=== PATIENT | female | born 1960 | race Caucasian/White ===

== ENCOUNTER 2021-07-22 06:31 | Inpatient (IN) | payer OTHER ==
[2021-07-22] MEDS ORDERED: ACETAMINOPHEN 500 MG TABLET (FP) PO ONE (07:51)
[2021-07-22] MEDS ORDERED: DIPHTH,PERTUSS(ACELL),TET 0.5 ML DISP.SYRIN IM ONE ×2 (07:52→07:57)
[2021-07-22] MEDS ORDERED: ACETAMINOPHEN 325 MG TABLET (FP) ONE (07:57)
[2021-07-22] MEDS ORDERED: LIDOCAINE 5% TOPICAL PATCH TP ONE (08:31)
[2021-07-22 08:46] LABS: HEMATOCRIT 37.4 % (32.4-45.2); HEMOGLOBIN 12.3 GM/dL (10.7-15.3); MCH 29.8 pg (25.7-33.7); MCHC 32.8 g/dl (32.0-36.0); MEAN CELL VOLUME 90.9 fl (80-96); MEAN PLT VOLUME 7.6 fl (7.5-11.1); PLATELET COUNT 317 10^3/uL (134-434); RBC 4.11 M/mm3 (3.60-5.2); RDW 14.2 % (11.6-15.6); WHITE BLOOD COUNT 21.5 K/mm3 (4.0-10.0)
[2021-07-22] MEDS ORDERED: LIDOCAINE 5% TOPICAL PATCH ONE (08:49)
[2021-07-22 09:04] LABS: CHLORIDE 100 mmol/L (98-107); SODIUM 139 mmol/L (136-145)
[2021-07-22 09:06] LABS: ANION GAP 20 MMOL/L (8-16); BLOOD UREA NITROGEN 24.3 mg/dL (7-18); CALCIUM 8.7 mg/dL (8.5-10.1); CO2 18 mmol/L (21-32)
[2021-07-22 09:09] LABS: SGOT/AST 22 U/L (15-37); SGPT/ALT 29 U/L (13-61)
[2021-07-22 09:10] LABS: CREATININE 0.8 mg/dL (0.55-1.3)
[2021-07-22 09:11] LABS: TOT PROT 6.4 g/dl (6.4-8.2)
[2021-07-22 09:12] LABS: ALK PHOS 179 U/L (45-117)
[2021-07-22] MEDS ORDERED: SODIUM CHLORIDE 0.9% 500 ML INFUS.BAG IV ONE ×2 (09:21→10:17)
[2021-07-22] MEDS ORDERED: POTASSIUM CHLORIDE TABS 20 MEQ TABLET.ER (FP) PO ONE ×3 (09:27→10:41)
[2021-07-22 09:35] LABS: GLUCOSE,RANDOM 421 mg/dL (74-106)
[2021-07-22 09:41] LABS: PLATELET ESTIMATE ADEQUATE
[2021-07-22] MEDS ORDERED: KCL 10 MEQ IVPB 20 MEQ/200 ML INFUS.BAG IVPB ONE (09:59)
[2021-07-22] MEDS ORDERED: SODIUM CHLORIDE 0.9%/KCL 20 MEQ/1,000 ML INFUS.BAG IV SCH (10:00)
[2021-07-22 10:25] LABS: VENOUS BASE EXCESS -7.5 mmol/L (-2-2); VENOUS O2 SATURATION 76.5 % (70-80); VENOUS PH 7.352 (7.310-7.410)
[2021-07-22] MEDS: KCL 10 MEQ IVPB 10 MEQ/100 ML INFUS.BAG IVPB SCH ×5 (10:25→17:00)
[2021-07-22 13:30] LABS: VENOUS BASE EXCESS -7.9 mmol/L (-2-2); VENOUS O2 SATURATION 97.8 % (70-80); VENOUS PCO2 26.4 mmHg (38-52); VENOUS PH 7.386 (7.310-7.410)
[2021-07-22 13:53] LABS: ALBUMIN 1.9 g/dl (3.4-5.0); CALCIUM 8.2 mg/dL (8.5-10.1)
[2021-07-22 13:54] LABS: BLOOD UREA NITROGEN 22.8 mg/dL (7-18)
[2021-07-22 13:57] LABS: CREATININE 0.7 mg/dL (0.55-1.3)
[2021-07-22 13:58] LABS: BILIRUBIN,TOTAL 0.9 mg/dL (0.2-1); TOT PROT 5.9 g/dl (6.4-8.2)
[2021-07-22 14:50] LABS: EPI CELLS 6 /uL (0-25.1); HYALINE CASTS 2 /uL (0-3.1); URINE APPEARANCE CLOUDY; URINE BACTERIA 588 /uL (0-1359); URINE BILIRUBIN NEGATIVE (NEGATIVE); URINE COLOR YELLOW; URINE GLUCOSE (UA) 3+ (NEGATIVE); URINE KETONE 3+ (NEGATIVE); URINE LEUK ESTERASE NEGATIVE (NEGATIVE); URINE NITRITE NEGATIVE (NEGATIVE); URINE PROTEIN 2+ (NEGATIVE); URINE UROBILINOGEN 0.2 mg/dL (0.2-1.0)
[2021-07-22 15:01] LABS: URINE RBC 55.9 /uL (0-23.9); URINE WBC 159.4 /uL (0-25.8); YEAST NON SEEN (NEGATIVE)
[2021-07-22] MEDS ORDERED: SODIUM CHLORIDE 1,000 ML IV SCH (16:00)
[2021-07-22] MEDS ORDERED: CYCLOBENZAPRINE HCL 10 MG TABLET (FP) ONE (16:14)
[2021-07-22] MEDS ORDERED: PT OWN MED DRAWER 7, Y5N ONE (16:23)
[2021-07-22] MEDS: CYCLOBENZAPRINE HCL 5 MG TABLET PO PRN (16:40)
[2021-07-22 18:56] LABS: CALCIUM 7.9 mg/dL (8.5-10.1)
[2021-07-22 18:57] LABS: ALBUMIN 1.9 g/dl (3.4-5.0); BLOOD UREA NITROGEN 19.5 mg/dL (7-18)
[2021-07-22 19:00] LABS: CREATININE 0.6 mg/dL (0.55-1.3); PHOSPHOROUS 1.9 mg/dL (2.5-4.9)
[2021-07-22] MEDS ORDERED: INSULIN (LEVEMIR) 100 UNITS/ML UNITS SQ SCH (22:00)
[2021-07-22] MEDS ORDERED: LIDOCAINE PATCH REMOVAL MC ONE (22:00)
[2021-07-22] MEDS ORDERED: ACETAMINOPHEN 1000 MG/100 ML VIAL IVPB ONE (22:04)
[2021-07-22] MEDS ORDERED: INSULIN (LEVEMIR) 100 UNITS/ML UNITS SQ ONE (22:37)
[2021-07-22] MEDS: INSULIN SLIDING SCALE (NOVOLOG) 1 VIAL SQ SCH (23:13)
[2021-07-22] MEDS ORDERED: LISINOPRIL 10 MG TABLET PO ONE (23:24)
[2021-07-22] MEDS ORDERED: morphine SULFATE 4 MG/ML VIAL IVPUSH ONE (23:26)
[2021-07-22] MEDS ORDERED: LISINOPRIL 20 MG TABLET ONE (23:45)
[2021-07-22] MEDS ORDERED: morphine SULFATE 4 MG/ML VIAL ONE (23:45)
[2021-07-22] MEDS: SODIUM CHLORIDE 0.9%/KCL 20 MEQ/1,000 ML INFUS.BAG IV SCH (23:59)
[2021-07-23] MEDS: CYCLOBENZAPRINE HCL 5 MG TABLET PO PRN (00:30)
[2021-07-23] MEDS ORDERED: morphine SULFATE 4 MG/ML VIAL IVPUSH ONE (05:19)
[2021-07-23] MEDS ORDERED: INSULIN (NOVOLOG) ASPART 100 UNITS/ML 10ML VIAL ONE (05:21)
[2021-07-23] MEDS: INSULIN SLIDING SCALE (NOVOLOG) 1 VIAL SQ SCH ×4 (06:00→21:06)
[2021-07-23] MEDS ORDERED: PIPERACILLIN/TAZOB 3.375 GM 3.375 GM in DEXTROSE 5%-WATER - 50 ML IVPB SCH ×3 (08:15→15:00)
[2021-07-23 08:31] LABS: HEMATOCRIT 36.8 % (32.4-45.2); MCH 29.4 pg (25.7-33.7); MCHC 32.7 g/dl (32.0-36.0); MEAN CELL VOLUME 89.8 fl (80-96); MEAN PLT VOLUME 7.5 fl (7.5-11.1); PLATELET COUNT 293 10^3/uL (134-434); RDW 14.4 % (11.6-15.6); WHITE BLOOD COUNT 20.4 K/mm3 (4.0-10.0)
[2021-07-23] MEDS ORDERED: VANCOMYCIN 1 GM in D5W (PRE-DOCKED) 1,000 MG/250 ML IVPB SCH ×2 (09:00→10:00)
[2021-07-23 09:16] LABS: BLOOD UREA NITROGEN 17.2 mg/dL (7-18); CALCIUM 8.1 mg/dL (8.5-10.1)
[2021-07-23 09:17] LABS: ALBUMIN 1.8 g/dl (3.4-5.0)
[2021-07-23 09:19] LABS: CREATININE 0.5 mg/dL (0.55-1.3)
[2021-07-23 09:21] LABS: BILIRUBIN,TOTAL 0.8 mg/dL (0.2-1)
[2021-07-23] MEDS ORDERED: PIPERACILLIN/TAZOBACTAM 3.375 GM VIAL IVPB ONE (09:42)
[2021-07-23] MEDS ORDERED: DEXTROSE 5%-WATER - 50 ML IVPB ONE (09:42)
[2021-07-23] MEDS: SODIUM CHLORIDE 0.9%/KCL 20 MEQ/1,000 ML INFUS.BAG IV SCH ×2 (09:48→13:38)
[2021-07-23 09:53] LABS: ANISOCYTOSIS 0; HELMET CELLS 0; HOWELL-JOLLY BODIES 0; MACROCYTOSIS 0; OVALOCYTE 0; PLATELET ESTIMATE NORMAL; ROULEAU 0; SICKELED CELLS 0; TARGET CELLS 0; TEAR DROP CELLS 0; TOXIC GRANULATION 0
[2021-07-23] MEDS ORDERED: HYDROCHLOROTHIAZIDE 12.5 MG CAPSULE (FP) PO SCH (10:00)
[2021-07-23] MEDS ORDERED: ENOXAPARIN NA (PORCINE) 40 MG/0.4 ML DISP.SYRIN SQ SCH (10:00)
[2021-07-23] MEDS ORDERED: LISINOPRIL 20 MG TABLET PO SCH (10:00)
[2021-07-23 11:56] LABS: MAGNESIUM 2.1 mg/dL (1.8-2.4)
[2021-07-23 12:00] LABS: PHOSPHOROUS 1.5 mg/dL (2.5-4.9)
[2021-07-23] MEDS: KCL 10 MEQ IVPB 10 MEQ/100 ML INFUS.BAG IVPB SCH ×3 (12:47→15:03)
[2021-07-23] MEDS ORDERED: LABETALOL HCL 5 MG/1 ML (100MG/20 ML VIAL) IVPUSH ONE ×2 (13:15→21:47)
[2021-07-23] MEDS ORDERED: DEXTROSE 5%-WATER 100 ML IVPB ONE (16:46)
[2021-07-23] MEDS ORDERED: CEFTRIAXONE 2 GM in DEXTROSE 5%-WATER 100 ML IVPB SCH (17:00)
[2021-07-23] MEDS ORDERED: LIDOCAINE PATCH REMOVAL MC ONE (19:06)
[2021-07-23] MEDS ORDERED: CYCLOBENZAPRINE HCL 5 MG TABLET PO PRN (19:06)
[2021-07-23] MEDS ORDERED: ACETAMINOPHEN 1000 MG/100 ML VIAL IVPB ONE (20:02)
[2021-07-23] MEDS ORDERED: LABETALOL HCL 5 MG/1 ML (100MG/20 ML VIAL) ONE (20:27)
[2021-07-23] MEDS ORDERED: INSULIN (LEVEMIR) 100 UNITS/ML UNITS SQ SCH (22:00)
[2021-07-24] MEDS ORDERED: CEFTRIAXONE 2 GM in DEXTROSE 5%-WATER 2 GM/100 ML BAG IVPB SCH ×2 (05:00→10:00)
[2021-07-24] MEDS: GENTAMICIN 80 MG PREMIXED IVPB 80 MG/100 ML BAG IVPB SCH ×3 (05:38→23:08)
[2021-07-24] MEDS: INSULIN SLIDING SCALE (NOVOLOG) 1 VIAL SQ SCH ×4 (06:07→23:02)
[2021-07-24 07:20] LABS: BASO % 0.3 % (0-2.0); HEMATOCRIT 37.5 % (32.4-45.2); HEMOGLOBIN 12.2 GM/dL (10.7-15.3); LYMPH % 3.2 % (8-40); MCH 29.5 pg (25.7-33.7); MCHC 32.4 g/dl (32.0-36.0); MEAN PLT VOLUME 8.3 fl (7.5-11.1); MONO % 6.1 % (3.8-10.2); NEUT % 90.4 % (42.8-82.8); PLATELET COUNT 299 10^3/uL (134-434); RBC 4.12 M/mm3 (3.60-5.2); RDW 14.7 % (11.6-15.6); WHITE BLOOD COUNT 17.5 K/mm3 (4.0-10.0)
[2021-07-24 07:35] LABS: CHLORIDE 109 mmol/L (98-107); SODIUM 144 mmol/L (136-145)
[2021-07-24 07:37] LABS: ALBUMIN 1.7 g/dl (3.4-5.0)
[2021-07-24 07:38] LABS: BLOOD UREA NITROGEN 19.4 mg/dL (7-18); CALCIUM 8.4 mg/dL (8.5-10.1); CO2 19 mmol/L (21-32); GLUCOSE,RANDOM 283 mg/dL (74-106); MAGNESIUM 2.3 mg/dL (1.8-2.4)
[2021-07-24 07:41] LABS: CREATININE 0.6 mg/dL (0.55-1.3); SGOT/AST 13 U/L (15-37); SGPT/ALT 20 U/L (13-61)
[2021-07-24 07:43] LABS: TOT PROT 5.9 g/dl (6.4-8.2)
[2021-07-24 07:44] LABS: ALK PHOS 153 U/L (45-117)
[2021-07-24 07:46] LABS: ANION GAP 17 MMOL/L (8-16)
[2021-07-24] MEDS ORDERED: NAPH,MB-DB/K PH,MBDB POWDER PACKET PO ONE (07:52)
[2021-07-24] MEDS: KCL 10 MEQ IVPB 10 MEQ/100 ML INFUS.BAG IVPB SCH ×3 (08:31→12:39)
[2021-07-24] MEDS ORDERED: NAPH,MB-DB/K PH,MBDB POWDER PACKET ONE (08:54)
[2021-07-24] MEDS ORDERED: KCL 10 MEQ IVPB 10 MEQ/100 ML INFUS.BAG IVPB ONE ×2 (08:54→15:37)
[2021-07-24] MEDS ORDERED: VANCOMYCIN 1 GM in D5W (PRE-DOCKED) 1,000 MG/250 ML IVPB SCH ×2 (09:00→10:00)
[2021-07-24] MEDS ORDERED: DEXTROSE 5%-WATER 100 ML IVPB ONE (09:35)
[2021-07-24] MEDS ORDERED: VANCOMYCIN 1 GRAM (PRE-DOCKED) 1,000 MG/250 ML BAG IVPB SCH (10:00)
[2021-07-24] MEDS: HYDROCHLOROTHIAZIDE 12.5 MG CAPSULE (FP) PO SCH (10:10)
[2021-07-24] MEDS: ENOXAPARIN NA (PORCINE) 40 MG/0.4 ML DISP.SYRIN SQ SCH (10:10)
[2021-07-24] MEDS: LISINOPRIL 20 MG TABLET PO SCH (10:10)
[2021-07-24] MEDS ORDERED: ACETAMINOPHEN 1000 MG/100 ML VIAL IVPB PRN (13:37)
[2021-07-24] MEDS ORDERED: ACETAMINOPHEN INJECTION 100 ML IVPB ONE (13:42)
[2021-07-24] MEDS: SODIUM CHLORIDE 0.9%/KCL 20 MEQ/1,000 ML INFUS.BAG IV SCH (13:44)
[2021-07-24] MEDS ORDERED: PENICILLIN G POTASSIUM 20,000,000 (20Mm) UNITS VIAL IVPB SCH (14:30)
[2021-07-24] MEDS ORDERED: PENICILLIN POTASSIUM IVPB SCH (15:00)
[2021-07-24] MEDS ORDERED: DEXTROSE 5% IVPB SCH (15:00)
[2021-07-24] MEDS ORDERED: WATER IVPB SCH (15:00)
[2021-07-24] MEDS ORDERED: MAGNESIUM SULF 50% (8.12 MEQ/2 ML-1 GM VIAL) IVPB ONE (15:01)
[2021-07-24] MEDS ORDERED: KCL 10 MEQ IVPB 10 MEQ/100 ML INFUS.BAG IVPB SCH (15:15)
[2021-07-24] MEDS ORDERED: INSULIN (LEVEMIR) 100 UNITS/ML UNITS SQ SCH ×2 (15:18→22:00)
[2021-07-24] MEDS ORDERED: methylPREDNISolone ACET (DEPO) 40 MG/1 ML VIAL ONE (15:31)
[2021-07-24] MEDS ORDERED: THROMBIN (BOVINE) 5,000 UNIT VIAL TP ONE ×2 (15:31→17:19)
[2021-07-24] MEDS ORDERED: BACITRACIN 15 GM TUBE TOPICAL OINTMENT ONE (15:31)
[2021-07-24] MEDS ORDERED: MAGNESIUM SULFATE IN WATER 2 GM/50 ML IVPB IVPB ONE (15:38)
[2021-07-24] MEDS ORDERED: BUPIVACAINE HCL/PF 0.5% (5MG/ML) 10 ML VIAL ONE (15:53)
[2021-07-24] MEDS ORDERED: SODIUM CHLORIDE 0.9%/KCL 20 MEQ/1,000 ML INFUS.BAG IV SCH (15:56)
[2021-07-24] MEDS ORDERED: fentaNYL CITRATE 250 MCG/5 ML VIAL ONE (16:06)
[2021-07-24] MEDS ORDERED: PROPOFOL 20 ML ONE (16:07)
[2021-07-24] MEDS ORDERED: KETAMINE HCL 200 MG/20 ML VIAL ONE (16:08)
[2021-07-24] MEDS ORDERED: GENTAMICIN SO4 80 MG/2 ML VIAL ONE (16:24)
[2021-07-24] MEDS ORDERED: VANCOMYCIN 1,000 MG VIAL (RESTRICTED TO ID ONLY) ONE ×2 (16:27→18:44)
[2021-07-24] MEDS ORDERED: ROCURONIUM BROMIDE 50 MG/5 ML SYRINGE ONE (16:37)
[2021-07-24] MEDS ORDERED: ALBUMIN HUMAN 25% 12.5 GM/50 ML VIAL IVPB ONE ×2 (17:00)
[2021-07-24] MEDS ORDERED: ceFAZolin SODIUM 1 GM VIAL IVPB ONE (17:19)
[2021-07-24] MEDS ORDERED: VANCOMYCIN 1,000 MG VIAL (RESTRICTED TO ID ONLY) IVPB ONE (17:19)
[2021-07-24 17:28] LABS: INR 1.27 (0.83-1.09); PROTHROMBIN TIME (PATIENT) 14.9 SEC (9.7-13.0)
[2021-07-24 17:30] LABS: ACTIVATED PTT 27.5 SECONDS (25.2-36.5)
[2021-07-24] MEDS ORDERED: PROMETHAZINE HCL 25 MG/1 ML VIAL IVPUSH PRN (19:09)
[2021-07-24] MEDS ORDERED: ONDANSETRON 4 MG/2 ML VIAL IVPUSH PRN ×2 (19:09→19:26)
[2021-07-24] MEDS ORDERED: LACTATED RINGERS SOLUTION 1,000 ML IV SCH (19:15)
[2021-07-24] MEDS ORDERED: BISACODYL 10 MG SUPP.RECT RC PRN (19:26)
[2021-07-24] MEDS ORDERED: ACETAMINOPHEN 325 MG TABLET (FP) PO PRN (19:26)
[2021-07-24] MEDS ORDERED: D5-1/2NS+20 MEQ KCL - 1,000 ML IV SCH (19:30)
[2021-07-24] MEDS ORDERED: D5-1/2NS+20 MEQ KCL - 20 MEQ/1,000 ML INFUS.BAG IV SCH (19:30)
[2021-07-24] MEDS ORDERED: LACTATED RINGERS SOLUTION 1,000 ML/1,000 ML INFUS.BAG IV SCH (20:15)
[2021-07-24] MEDS ORDERED: PROPOFOL 1,000,000 MCG/100 ML VIAL IVPB SCH (20:15)
[2021-07-24] MEDS ORDERED: FENTANYL NS IVPB 500 MCG/100 ML BAG IVPB SCH (20:15)
[2021-07-24 20:57] LABS: ARTERIAL BLD GAS O2 SATURATION 98.1 % (95-98); ARTERIAL BLOOD GAS PO2 115.6 mmHg (80-100); ARTERIAL BLOOD GAS pH 7.361 (7.350-7.450)
[2021-07-24 21:01] LABS: VENT MODE A/C; VENT RATE 10
[2021-07-24 21:12] LABS: CALCIUM 8.3 mg/dL (8.5-10.1)
[2021-07-24 21:13] LABS: BLOOD UREA NITROGEN 23.1 mg/dL (7-18); MAGNESIUM 3.1 mg/dL (1.8-2.4)
[2021-07-24 21:15] LABS: BASO % 0.1 % (0-2.0); HEMATOCRIT 31.8 % (32.4-45.2); HEMOGLOBIN 10.5 GM/dL (10.7-15.3); LYMPH % 2.7 % (8-40); MCH 29.8 pg (25.7-33.7); MCHC 33.1 g/dl (32.0-36.0); MEAN CELL VOLUME 90.1 fl (80-96); MEAN PLT VOLUME 8.4 fl (7.5-11.1); MONO % 7.5 % (3.8-10.2); NEUT % 89.7 % (42.8-82.8); PLATELET COUNT 260 10^3/uL (134-434); RBC 3.53 M/mm3 (3.60-5.2); RDW 14.7 % (11.6-15.6); WHITE BLOOD COUNT 17.2 K/mm3 (4.0-10.0)
[2021-07-24 21:16] LABS: CREATININE 0.7 mg/dL (0.55-1.3)
[2021-07-24 21:17] LABS: BILIRUBIN,TOTAL 0.5 mg/dL (0.2-1)
[2021-07-24 21:27] LABS: ALBUMIN 1.4 g/dl (3.4-5.0)
[2021-07-24] MEDS ORDERED: MUPIROCIN 2% TOPICAL OINTMENT FOR DECOLONIZATION NS SCH (22:00)
[2021-07-24] MEDS ORDERED: CHLORHEXIDINE GLUCONATE 4% CLEANSER FOR DECOLONIZATION TP SCH (22:00)
[2021-07-24] MEDS: CEFTRIAXONE 2 GM in DEXTROSE 5%-WATER 2 GM/100 ML BAG IVPB SCH (23:05)
[2021-07-24] MEDS: MUPIROCIN 2% TOPICAL OINTMENT FOR DECOLONIZATION NS SCH (23:07)
[2021-07-24] MEDS: CHLORHEXIDINE GLUCONATE 4% CLEANSER FOR DECOLONIZATION TP SCH (23:07)
[2021-07-24] MEDS: DOCUSATE SODIUM 100 MG CAPSULE (FP) PO SCH (23:07)
[2021-07-24] MEDS ORDERED: PT OWN MED DRAWER 7, Y5N ONE (23:57)
[2021-07-25] MEDS ORDERED: PT OWN MED DRAWER 7, Y5N ONE ×2 (01:06→11:20)
[2021-07-25 01:21] LABS: BLOOD UREA NITROGEN 24.8 mg/dL (7-18); CALCIUM 7.9 mg/dL (8.5-10.1)
[2021-07-25 01:24] LABS: CREATININE 0.6 mg/dL (0.55-1.3)
[2021-07-25] MEDS: GENTAMICIN 80 MG PREMIXED IVPB 80 MG/100 ML BAG IVPB SCH ×3 (01:38→17:50)
[2021-07-25] MEDS ORDERED: DEXTROSE 5%-WATER 100 ML IVPB ONE ×2 (02:07→16:34)
[2021-07-25] MEDS: CEFTRIAXONE 2 GM in DEXTROSE 5%-WATER 2 GM/100 ML BAG IVPB SCH ×2 (06:37→16:39)
[2021-07-25] MEDS: INSULIN SLIDING SCALE (NOVOLOG) 1 VIAL SQ SCH ×4 (06:37→21:19)
[2021-07-25] MEDS: DOCUSATE SODIUM 100 MG CAPSULE (FP) PO SCH ×3 (06:37→21:18)
[2021-07-25 07:14] LABS: BASO % 0.2 % (0-2.0); EOS % 0.1 % (0-4.5); HEMATOCRIT 28.2 % (32.4-45.2); HEMOGLOBIN 9.5 GM/dL (10.7-15.3); LYMPH % 5.2 % (8-40); MCH 30.2 pg (25.7-33.7); MCHC 33.8 g/dl (32.0-36.0); MEAN CELL VOLUME 89.2 fl (80-96); MEAN PLT VOLUME 8.1 fl (7.5-11.1); MONO % 5.8 % (3.8-10.2); NEUT % 88.7 % (42.8-82.8); PLATELET COUNT 245 10^3/uL (134-434); RBC 3.17 M/mm3 (3.60-5.2); RDW 14.5 % (11.6-15.6); WHITE BLOOD COUNT 15.9 K/mm3 (4.0-10.0)
[2021-07-25 07:39] LABS: CALCIUM 7.5 mg/dL (8.5-10.1)
[2021-07-25 07:40] LABS: ALBUMIN 1.2 g/dl (3.4-5.0); BLOOD UREA NITROGEN 23.3 mg/dL (7-18); MAGNESIUM 2.3 mg/dL (1.8-2.4)
[2021-07-25 07:43] LABS: CREATININE 0.6 mg/dL (0.55-1.3); PHOSPHOROUS 1.7 mg/dL (2.5-4.9)
[2021-07-25 07:44] LABS: BILIRUBIN,TOTAL 0.6 mg/dL (0.2-1); TOT PROT 4.7 g/dl (6.4-8.2)
[2021-07-25] MEDS ORDERED: POTASSIUM PHOSPHATE 30 MM in SODIUM CHLORIDE 250 ML IVPB ONE (08:43)
[2021-07-25] MEDS: INSULIN (LEVEMIR) 100 UNITS/ML UNITS SQ SCH ×2 (09:17→21:18)
[2021-07-25] MEDS: ENOXAPARIN NA (PORCINE) 40 MG/0.4 ML DISP.SYRIN SQ SCH (09:17)
[2021-07-25] MEDS: SODIUM CHLORIDE 0.45%/POT 20 MEQ/1,000 ML INFUS.BAG IV SCH (09:18)
[2021-07-25] MEDS: KCL 10 MEQ IVPB 10 MEQ/100 ML INFUS.BAG IVPB SCH ×3 (09:21→11:30)
[2021-07-25] MEDS ORDERED: SODIUM PHOSPHATE - 30 MM in SODIUM CHLORIDE 250 ML IVPB ONE (14:30)
[2021-07-25 16:29] VITALS: BMI 30.1
[2021-07-25] MEDS: MUPIROCIN 2% TOPICAL OINTMENT FOR DECOLONIZATION NS SCH ×2 (16:41→21:05)
[2021-07-25] MEDS ORDERED: morphine SULFATE 4 MG/ML VIAL IVPUSH ONE (20:38)
[2021-07-25] MEDS ORDERED: morphine SULFATE 4 MG/ML VIAL ONE (20:42)
[2021-07-25] MEDS: CHLORHEXIDINE GLUCONATE 4% CLEANSER FOR DECOLONIZATION TP SCH (21:18)
[2021-07-25] MEDS ORDERED: DEXTROSE 50%-WATER - 25 GM/50 ML VIAL IVPUSH ONE (21:25)
[2021-07-25] MEDS ORDERED: DEXTROSE 50%-WATER 25 GM/50 ML DISP.SYRIN ONE (21:50)
[2021-07-26] MEDS ORDERED: PT OWN MED DRAWER 7, Y5N ONE ×4 (01:07→23:10)
[2021-07-26] MEDS: GENTAMICIN 80 MG PREMIXED IVPB 80 MG/100 ML BAG IVPB SCH ×3 (01:25→17:32)
[2021-07-26] MEDS ORDERED: morphine SULFATE 4 MG/ML VIAL IVPUSH PRN (01:47)
[2021-07-26] MEDS: CEFTRIAXONE 2 GM in DEXTROSE 5%-WATER 2 GM/100 ML BAG IVPB SCH ×2 (05:53→16:37)
[2021-07-26] MEDS: DOCUSATE SODIUM 100 MG CAPSULE (FP) PO SCH ×3 (05:55→21:13)
[2021-07-26] MEDS ORDERED: LABETALOL HCL 5 MG/1 ML (100MG/20 ML VIAL) IVPUSH ONE ×2 (06:07→16:48)
[2021-07-26 06:44] LABS: HEMATOCRIT 32.7 % (32.4-45.2); HEMOGLOBIN 10.8 GM/dL (10.7-15.3); MCH 29.5 pg (25.7-33.7); MCHC 33.1 g/dl (32.0-36.0); MEAN CELL VOLUME 89.1 fl (80-96); MEAN PLT VOLUME 7.8 fl (7.5-11.1); PLATELET COUNT 256 10^3/uL (134-434); RBC 3.67 M/mm3 (3.60-5.2); WHITE BLOOD COUNT 17.5 K/mm3 (4.0-10.0)
[2021-07-26] MEDS: INSULIN (LEVEMIR) 100 UNITS/ML UNITS SQ SCH ×2 (06:54→21:14)
[2021-07-26] MEDS: INSULIN SLIDING SCALE (NOVOLOG) 1 VIAL SQ SCH ×4 (06:54→21:14)
[2021-07-26 07:09] LABS: BLOOD UREA NITROGEN 17.6 mg/dL (7-18); CALCIUM 7.7 mg/dL (8.5-10.1)
[2021-07-26 07:12] LABS: CREATININE 0.4 mg/dL (0.55-1.3)
[2021-07-26 07:13] LABS: PHOSPHOROUS 1.6 mg/dL (2.5-4.9)
[2021-07-26] MEDS ORDERED: MAGNESIUM SULF 50% (8.12 MEQ/2 ML-1 GM VIAL) IVPB ONE (07:44)
[2021-07-26] MEDS ORDERED: NAPH,MB-DB/K PH,MBDB POWDER PACKET PO ONE (07:45)
[2021-07-26] MEDS ORDERED: HYDROmorphone HCl 2 MG/ML VIAL IVPUSH ONE (08:01)
[2021-07-26] MEDS: LISINOPRIL 20 MG TABLET PO SCH (09:29)
[2021-07-26] MEDS: ENOXAPARIN NA (PORCINE) 40 MG/0.4 ML DISP.SYRIN SQ SCH (09:29)
[2021-07-26] MEDS: HYDROCHLOROTHIAZIDE 12.5 MG CAPSULE (FP) PO SCH (09:29)
[2021-07-26] MEDS: MUPIROCIN 2% TOPICAL OINTMENT FOR DECOLONIZATION NS SCH ×2 (09:30→21:14)
[2021-07-26] MEDS: SODIUM CHLORIDE 0.45%/POT 20 MEQ/1,000 ML INFUS.BAG IV SCH (09:30)
[2021-07-26] MEDS: HYDROmorphone HCL 2 MG TABLET PO PRN ×2 (14:43→19:49)
[2021-07-26] MEDS ORDERED: DEXTROSE 5%-WATER 100 ML IVPB ONE (16:35)
[2021-07-26] MEDS ORDERED: FUROSEMIDE 40 MG/4 ML INJECTABLE VIAL IVPUSH ONE (16:52)
[2021-07-26] MEDS ORDERED: HYDROmorphone HCL 2 MG TABLET PO ONE (19:45)
[2021-07-26] MEDS: CHLORHEXIDINE GLUCONATE 4% CLEANSER FOR DECOLONIZATION TP SCH (21:14)
[2021-07-27] MEDS: GENTAMICIN 80 MG PREMIXED IVPB 80 MG/100 ML BAG IVPB SCH ×2 (01:20→09:43)
[2021-07-27] MEDS ORDERED: DEXTROSE 5%-WATER 100 ML IVPB ONE ×2 (05:29→17:06)
[2021-07-27] MEDS ORDERED: PT OWN MED DRAWER 7, Y5N ONE ×3 (05:49→17:06)
[2021-07-27] MEDS: DOCUSATE SODIUM 100 MG CAPSULE (FP) PO SCH ×3 (05:50→22:13)
[2021-07-27] MEDS: CEFTRIAXONE 2 GM in DEXTROSE 5%-WATER 2 GM/100 ML BAG IVPB SCH ×2 (05:50→17:11)
[2021-07-27] MEDS: INSULIN (LEVEMIR) 100 UNITS/ML UNITS SQ SCH ×2 (06:15→22:23)
[2021-07-27] MEDS: INSULIN SLIDING SCALE (NOVOLOG) 1 VIAL SQ SCH ×4 (06:17→22:23)
[2021-07-27] MEDS: SODIUM CHLORIDE 0.45%/POT 20 MEQ/1,000 ML INFUS.BAG IV SCH ×3 (07:45→19:58)
[2021-07-27] MEDS: HYDROCHLOROTHIAZIDE 12.5 MG CAPSULE (FP) PO SCH (09:43)
[2021-07-27] MEDS: LISINOPRIL 20 MG TABLET PO SCH (09:43)
[2021-07-27] MEDS: ENOXAPARIN NA (PORCINE) 40 MG/0.4 ML DISP.SYRIN SQ SCH (09:43)
[2021-07-27] MEDS: MUPIROCIN 2% TOPICAL OINTMENT FOR DECOLONIZATION NS SCH ×2 (09:43→22:13)
[2021-07-27] MEDS: HYDROmorphone HCl 2 MG/ML VIAL IVPUSH PRN ×3 (11:14→23:07)
[2021-07-27] MEDS: CHLORHEXIDINE GLUCONATE 4% CLEANSER FOR DECOLONIZATION TP SCH (22:13)
[2021-07-28] MEDS ORDERED: DEXTROSE 5%-WATER 100 ML IVPB ONE (04:09)
[2021-07-28] MEDS: CEFTRIAXONE 2 GM in DEXTROSE 5%-WATER 2 GM/100 ML BAG IVPB SCH (04:10)
[2021-07-28] MEDS: HYDROmorphone HCl 2 MG/ML VIAL IVPUSH PRN (04:11)
[2021-07-28] MEDS: GENTAMICIN 80 MG PREMIXED IVPB 80 MG/100 ML BAG IVPB SCH (05:15)
[2021-07-28] MEDS: INSULIN SLIDING SCALE (NOVOLOG) 1 VIAL SQ SCH ×4 (06:43→21:25)
[2021-07-28] MEDS: SODIUM CHLORIDE 0.45%/POT 20 MEQ/1,000 ML INFUS.BAG IV SCH (06:44)
[2021-07-28] MEDS: DOCUSATE SODIUM 100 MG CAPSULE (FP) PO SCH ×3 (06:44→21:24)
[2021-07-28] MEDS: INSULIN (LEVEMIR) 100 UNITS/ML UNITS SQ SCH ×2 (06:50→21:24)
[2021-07-28 07:27] LABS: BASO % 0.2 % (0-2.0); HEMATOCRIT 30.1 % (32.4-45.2); HEMOGLOBIN 9.9 GM/dL (10.7-15.3); LYMPH % 5.6 % (8-40); MCH 29.7 pg (25.7-33.7); MEAN CELL VOLUME 89.9 fl (80-96); MEAN PLT VOLUME 7.8 fl (7.5-11.1); MONO % 5.6 % (3.8-10.2); NEUT % 87.6 % (42.8-82.8); PLATELET COUNT 268 10^3/uL (134-434); RBC 3.34 M/mm3 (3.60-5.2); RDW 14.6 % (11.6-15.6); WHITE BLOOD COUNT 12.7 K/mm3 (4.0-10.0)
[2021-07-28] MEDS ORDERED: LABETALOL HCL 5 MG/1 ML (100MG/20 ML VIAL) IVPUSH ONE ×2 (07:30→10:00)
[2021-07-28] MEDS ORDERED: HYDROCHLOROTHIAZIDE 25 MG TABLET (FP) PO ONE (07:33)
[2021-07-28] MEDS ORDERED: LISINOPRIL 20 MG TABLET PO ONE (07:33)
[2021-07-28 07:45] LABS: CALCIUM 7.2 mg/dL (8.5-10.1)
[2021-07-28 07:46] LABS: ALBUMIN 1.2 g/dl (3.4-5.0); BLOOD UREA NITROGEN 7.8 mg/dL (7-18); MAGNESIUM 1.8 mg/dL (1.8-2.4)
[2021-07-28 07:49] LABS: CREATININE 0.3 mg/dL (0.55-1.3)
[2021-07-28 07:50] LABS: PHOSPHOROUS 2.6 mg/dL (2.5-4.9)
[2021-07-28 07:51] LABS: BILIRUBIN,TOTAL 0.4 mg/dL (0.2-1); TOT PROT 5.2 g/dl (6.4-8.2)
[2021-07-28] MEDS ORDERED: MAGNESIUM 1GM/D5W 100ML - 100 ML IVPB IVPB ONE (08:38)
[2021-07-28] MEDS ORDERED: POTASSIUM PHOSPHATE 30 MM in SODIUM CHLORIDE 250 ML IVPB ONE (08:38)
[2021-07-28] MEDS: HYDROmorphone HCL 2 MG TABLET PO PRN ×2 (09:00→14:35)
[2021-07-28] MEDS: ENOXAPARIN NA (PORCINE) 40 MG/0.4 ML DISP.SYRIN SQ SCH (09:14)
[2021-07-28] MEDS: MUPIROCIN 2% TOPICAL OINTMENT FOR DECOLONIZATION NS SCH (09:14)
[2021-07-28] MEDS ORDERED: PT OWN MED DRAWER 7, Y5N ONE ×2 (09:57→10:42)
[2021-07-28] MEDS: HYDROCHLOROTHIAZIDE 12.5 MG CAPSULE (FP) PO SCH (10:01)
[2021-07-28] MEDS ORDERED: NIFEdipine E.R 60 MG TABLET PO SCH (10:30)
[2021-07-28] MEDS ORDERED: ONDANSETRON 4 MG/2 ML VIAL IVPUSH PRN (19:13)
[2021-07-28] MEDS ORDERED: BISACODYL 10 MG SUPP.RECT RC PRN (19:13)
[2021-07-28] MEDS ORDERED: ALBUMIN HUMAN 25% 12.5 GM/50 ML VIAL IVPB ONE (19:13)
[2021-07-28] MEDS ORDERED: INSULIN (NOVOLOG) ASPART 100 UNITS/ML 10ML VIAL ONE (20:55)
[2021-07-28] MEDS ORDERED: CHLORHEXIDINE GLUCONATE 4% CLEANSER FOR DECOLONIZATION TP SCH (22:00)
[2021-07-28] MEDS ORDERED: MUPIROCIN 2% TOPICAL OINTMENT FOR DECOLONIZATION NS SCH (22:00)
[2021-07-29] MEDS ORDERED: DEXTROSE 5%-WATER 100 ML IVPB ONE (03:44)
[2021-07-29] MEDS: CEFTRIAXONE 2 GM in DEXTROSE 5%-WATER 100 ML IVPB SCH (04:00)
[2021-07-29] MEDS ORDERED: CEFTRIAXONE 2 GM in DEXTROSE 5%-WATER 100 ML IVPB SCH (05:00)
[2021-07-29] MEDS: DOCUSATE SODIUM 100 MG CAPSULE (FP) PO SCH ×3 (05:27→21:10)
[2021-07-29] MEDS: INSULIN (LEVEMIR) 100 UNITS/ML UNITS SQ SCH ×2 (06:08→21:09)
[2021-07-29] MEDS: INSULIN SLIDING SCALE (NOVOLOG) 1 VIAL SQ SCH ×4 (06:08→21:10)
[2021-07-29 09:05] LABS: HEMATOCRIT 30.1 % (32.4-45.2); HEMOGLOBIN 10.3 GM/dL (10.7-15.3); MCH 30.1 pg (25.7-33.7); MCHC 34.2 g/dl (32.0-36.0); MEAN CELL VOLUME 87.8 fl (80-96); MEAN PLT VOLUME 7.5 fl (7.5-11.1); PLATELET COUNT 293 10^3/uL (134-434); RBC 3.43 M/mm3 (3.60-5.2); RDW 14.4 % (11.6-15.6); WHITE BLOOD COUNT 12.3 K/mm3 (4.0-10.0)
[2021-07-29] MEDS ORDERED: INSULIN (NOVOLOG) ASPART 100 UNITS/ML 10ML VIAL ONE (09:28)
[2021-07-29] MEDS ORDERED: LISINOPRIL 20 MG TABLET PO SCH (10:00)
[2021-07-29] MEDS: HYDROmorphone HCL 2 MG TABLET PO PRN ×2 (10:23→16:52)
[2021-07-29] MEDS: HYDROCHLOROTHIAZIDE 12.5 MG CAPSULE (FP) PO SCH (10:25)
[2021-07-29] MEDS: ENOXAPARIN NA (PORCINE) 40 MG/0.4 ML DISP.SYRIN SQ SCH (10:25)
[2021-07-29] MEDS: NIFEdipine E.R 60 MG TABLET PO SCH (10:25)
[2021-07-29] MEDS: LISINOPRIL 20 MG TABLET PO SCH (10:25)
[2021-07-29 12:16] LABS: ALBUMIN 1.3 g/dl (3.4-5.0); ALK PHOS 220 U/L (45-117); ANION GAP 6 MMOL/L (8-16); BILIRUBIN,TOTAL 0.4 mg/dL (0.2-1); BLOOD UREA NITROGEN 6.8 mg/dL (7-18); CALCIUM 7.2 mg/dL (8.5-10.1); CHLORIDE 91 mmol/L (98-107); CO2 36 mmol/L (21-32); CREATININE 0.4 mg/dL (0.55-1.3); GLUCOSE,RANDOM 143 mg/dL (74-106); PHOSPHOROUS 2.2 mg/dL (2.5-4.9); SGOT/AST 18 U/L (15-37); SGPT/ALT 16 U/L (13-61); SODIUM 133 mmol/L (136-145); TOT PROT 5.4 g/dl (6.4-8.2)
[2021-07-29] MEDS ORDERED: POTASSIUM CHLORIDE ORAL LIQUID 20 MEQ/15 ML PO SCH (14:00)
[2021-07-29 14:38] LABS: MAGNESIUM 1.9 mg/dL (1.8-2.4)
[2021-07-29] MEDS: POTASSIUM CHLORIDE ORAL LIQUID 20 MEQ/15 ML PO SCH ×2 (15:50→19:58)
[2021-07-29] MEDS: AMINO ACIDS/PROTEIN HYDROLYS 30 ML LIQUID.PKT PO SCH (16:51)
[2021-07-29] MEDS: BACITRACIN 15 GM TUBE TOPICAL OINTMENT TP SCH (21:10)
[2021-07-29] MEDS: ASCORBIC ACID 500 MG TABLET (FP) PO SCH (21:10)
[2021-07-29] MEDS ORDERED: BACITRACIN 15 GM TUBE TOPICAL OINTMENT TP SCH (22:00)
[2021-07-30] MEDS ORDERED: DEXTROSE 5%-WATER 100 ML IVPB ONE (03:56)
[2021-07-30] MEDS: CEFTRIAXONE 2 GM in DEXTROSE 5%-WATER 100 ML IVPB SCH (04:33)
[2021-07-30] MEDS: INSULIN SLIDING SCALE (NOVOLOG) 1 VIAL SQ SCH ×4 (06:18→22:01)
[2021-07-30] MEDS: DOCUSATE SODIUM 100 MG CAPSULE (FP) PO SCH ×3 (06:18→22:00)
[2021-07-30] MEDS: INSULIN (LEVEMIR) 100 UNITS/ML UNITS SQ SCH ×2 (06:18→22:00)
[2021-07-30 08:24] LABS: BASO % 0.1 % (0-2.0); EOS % 1.3 % (0-4.5); HEMATOCRIT 31.1 % (32.4-45.2); HEMOGLOBIN 10.5 GM/dL (10.7-15.3); LYMPH % 9.4 % (8-40); MCH 29.8 pg (25.7-33.7); MCHC 33.6 g/dl (32.0-36.0); MEAN CELL VOLUME 88.7 fl (80-96); MEAN PLT VOLUME 7.6 fl (7.5-11.1); MONO % 7.8 % (3.8-10.2); NEUT % 81.4 % (42.8-82.8); PLATELET COUNT 323 10^3/uL (134-434); RBC 3.51 M/mm3 (3.60-5.2); RDW 14.6 % (11.6-15.6); WHITE BLOOD COUNT 11.4 K/mm3 (4.0-10.0)
[2021-07-30] MEDS: AMINO ACIDS/PROTEIN HYDROLYS 30 ML LIQUID.PKT PO SCH ×2 (09:41→17:12)
[2021-07-30] MEDS: ENOXAPARIN NA (PORCINE) 40 MG/0.4 ML DISP.SYRIN SQ SCH (09:50)
[2021-07-30 10:28] LABS: ALBUMIN 1.4 g/dl (3.4-5.0); BILIRUBIN,TOTAL 0.3 mg/dL (0.2-1); CALCIUM 7.8 mg/dL (8.5-10.1); CREATININE 0.4 mg/dL (0.55-1.3); MAGNESIUM 2.1 mg/dL (1.8-2.4); PHOSPHOROUS 2.4 mg/dL (2.5-4.9); TOT PROT 5.8 g/dl (6.4-8.2)
[2021-07-30] MEDS ORDERED: FLUCONAZOLE 150 MG TABLET PO ONE (10:45)
[2021-07-30] MEDS: NIFEdipine E.R 60 MG TABLET PO SCH (10:51)
[2021-07-30] MEDS: HYDROCHLOROTHIAZIDE 12.5 MG CAPSULE (FP) PO SCH (10:51)
[2021-07-30] MEDS: LISINOPRIL 20 MG TABLET PO SCH (10:52)
[2021-07-30] MEDS: MULTIVITAMINS (DAILY MVI) TABLET (FP) PO SCH (10:52)
[2021-07-30] MEDS: BACITRACIN 15 GM TUBE TOPICAL OINTMENT TP SCH ×2 (10:52→22:02)
[2021-07-30] MEDS: ZINC SULFATE 220 MG CAPSULE (FP) PO SCH (10:52)
[2021-07-30] MEDS: ASCORBIC ACID 500 MG TABLET (FP) PO SCH ×2 (10:52→22:00)
[2021-07-30] MEDS: NYSTATIN 100000 UNIT/GM TOPICAL OINTMENT 15 GM TUBE TP SCH ×2 (10:53→22:03)
[2021-07-30] MEDS: HYDROmorphone HCL 2 MG TABLET PO PRN (11:09)
[2021-07-30] MEDS: NYSTATIN 500,000 UNITS TABLET PO SCH ×2 (13:10→22:04)
[2021-07-30] MEDS ORDERED: INSULIN (NOVOLOG) ASPART 100 UNITS/ML 10ML VIAL ONE (21:59)
[2021-07-31] MEDS ORDERED: DEXTROSE 5%-WATER 100 ML IVPB ONE (05:51)
[2021-07-31] MEDS: NYSTATIN 500,000 UNITS TABLET PO SCH ×3 (05:59→21:01)
[2021-07-31] MEDS: CEFTRIAXONE 2 GM in DEXTROSE 5%-WATER 100 ML IVPB SCH (05:59)
[2021-07-31] MEDS: DOCUSATE SODIUM 100 MG CAPSULE (FP) PO SCH ×3 (05:59→21:00)
[2021-07-31] MEDS: INSULIN (LEVEMIR) 100 UNITS/ML UNITS SQ SCH ×2 (06:02→21:00)
[2021-07-31] MEDS: INSULIN SLIDING SCALE (NOVOLOG) 1 VIAL SQ SCH ×4 (06:03→21:00)
[2021-07-31] MEDS: ACETAMINOPHEN 325 MG TABLET (FP) PO PRN ×2 (06:08→21:03)
[2021-07-31] MEDS ORDERED: PT OWN MED DRAWER 7, Y5N ONE ×3 (08:57→13:35)
[2021-07-31] MEDS: ASCORBIC ACID 500 MG TABLET (FP) PO SCH ×2 (09:13→21:00)
[2021-07-31] MEDS: MULTIVITAMINS (DAILY MVI) TABLET (FP) PO SCH (09:13)
[2021-07-31] MEDS: ENOXAPARIN NA (PORCINE) 40 MG/0.4 ML DISP.SYRIN SQ SCH (09:14)
[2021-07-31] MEDS: HYDROCHLOROTHIAZIDE 12.5 MG CAPSULE (FP) PO SCH (09:14)
[2021-07-31] MEDS: FLUCONAZOLE 100 MG TABLET (UD) PO SCH (09:14)
[2021-07-31] MEDS: LISINOPRIL 20 MG TABLET PO SCH (09:14)
[2021-07-31] MEDS: ZINC SULFATE 220 MG CAPSULE (FP) PO SCH (09:14)
[2021-07-31] MEDS: NIFEdipine E.R 60 MG TABLET PO SCH (09:14)
[2021-07-31] MEDS: AMINO ACIDS/PROTEIN HYDROLYS 30 ML LIQUID.PKT PO SCH ×2 (09:14→16:53)
[2021-07-31] MEDS: NYSTATIN 100000 UNIT/GM TOPICAL OINTMENT 15 GM TUBE TP SCH ×2 (09:15→21:01)
[2021-07-31] MEDS: BACITRACIN 15 GM TUBE TOPICAL OINTMENT TP SCH ×2 (09:15→21:01)
[2021-07-31 10:14] LABS: HEMATOCRIT 30.5 % (32.4-45.2); HEMOGLOBIN 10.2 GM/dL (10.7-15.3); MCH 29.4 pg (25.7-33.7); MCHC 33.6 g/dl (32.0-36.0); MEAN CELL VOLUME 87.4 fl (80-96); MEAN PLT VOLUME 7.2 fl (7.5-11.1); PLATELET COUNT 320 10^3/uL (134-434); RBC 3.49 M/mm3 (3.60-5.2); RDW 14.2 % (11.6-15.6)
[2021-07-31] MEDS ORDERED: INSULIN (NOVOLOG) ASPART 100 UNITS/ML 10ML VIAL ONE (11:05)
[2021-07-31] MEDS: valACYclovir HCL 500 MG TABLET (FP) PO SCH ×2 (11:20→21:00)
[2021-07-31 12:06] LABS: ALBUMIN 1.4 g/dl (3.4-5.0); BILIRUBIN,TOTAL 0.4 mg/dL (0.2-1); CALCIUM 7.7 mg/dL (8.5-10.1); CREATININE 0.4 mg/dL (0.55-1.3); TOT PROT 5.5 g/dl (6.4-8.2)
[2021-07-31] MEDS ORDERED: POTASSIUM CHLORIDE TABS 20 MEQ TABLET.ER (FP) PO ONE (12:24)
[2021-07-31] MEDS: KCL 10 MEQ IVPB 10 MEQ/100 ML INFUS.BAG IVPB SCH ×2 (12:41→14:22)
[2021-07-31] MEDS ORDERED: ALBUMIN HUMAN 25% 12.5 GM/50 ML VIAL IVPB ONE (13:15)
[2021-07-31] MEDS ORDERED: MINERAL OIL/PETROLAT/WATER TOPICAL CREAM 454 GM JAR TP PRN (14:30)
[2021-08-01] MEDS ORDERED: DEXTROSE 5%-WATER 100 ML IVPB ONE (05:54)
[2021-08-01] MEDS: DOCUSATE SODIUM 100 MG CAPSULE (FP) PO SCH ×3 (05:56→21:23)
[2021-08-01] MEDS: NYSTATIN 500,000 UNITS TABLET PO SCH ×3 (05:57→21:23)
[2021-08-01] MEDS: CEFTRIAXONE 2 GM in DEXTROSE 5%-WATER 100 ML IVPB SCH (05:57)
[2021-08-01] MEDS: INSULIN (LEVEMIR) 100 UNITS/ML UNITS SQ SCH ×2 (06:06→21:27)
[2021-08-01] MEDS: INSULIN SLIDING SCALE (NOVOLOG) 1 VIAL SQ SCH ×4 (06:06→21:27)
[2021-08-01 08:30] LABS: BASO % 0.3 % (0-2.0); EOS % 1.1 % (0-4.5); HEMATOCRIT 30.2 % (32.4-45.2); HEMOGLOBIN 10.2 GM/dL (10.7-15.3); LYMPH % 10.3 % (8-40); MCH 29.8 pg (25.7-33.7); MCHC 33.7 g/dl (32.0-36.0); MEAN CELL VOLUME 88.4 fl (80-96); MEAN PLT VOLUME 7.3 fl (7.5-11.1); MONO % 7.2 % (3.8-10.2); NEUT % 81.1 % (42.8-82.8); PLATELET COUNT 369 10^3/uL (134-434); RBC 3.41 M/mm3 (3.60-5.2); RDW 14.1 % (11.6-15.6); WHITE BLOOD COUNT 12.3 K/mm3 (4.0-10.0)
[2021-08-01] MEDS: AMINO ACIDS/PROTEIN HYDROLYS 30 ML LIQUID.PKT PO SCH ×2 (08:34→17:27)
[2021-08-01] MEDS ORDERED: PT OWN MED DRAWER 7, Y5N ONE ×3 (09:46→13:20)
[2021-08-01] MEDS: NIFEdipine E.R 60 MG TABLET PO SCH (09:49)
[2021-08-01] MEDS: HYDROCHLOROTHIAZIDE 12.5 MG CAPSULE (FP) PO SCH (09:49)
[2021-08-01] MEDS: ZINC SULFATE 220 MG CAPSULE (FP) PO SCH (09:49)
[2021-08-01] MEDS: LISINOPRIL 20 MG TABLET PO SCH (09:49)
[2021-08-01] MEDS: BACITRACIN 15 GM TUBE TOPICAL OINTMENT TP SCH ×2 (09:50→21:28)
[2021-08-01] MEDS: valACYclovir HCL 500 MG TABLET (FP) PO SCH ×2 (09:50→21:23)
[2021-08-01] MEDS: ENOXAPARIN NA (PORCINE) 40 MG/0.4 ML DISP.SYRIN SQ SCH (09:50)
[2021-08-01] MEDS: ASCORBIC ACID 500 MG TABLET (FP) PO SCH ×2 (09:50→21:23)
[2021-08-01] MEDS: MULTIVITAMINS (DAILY MVI) TABLET (FP) PO SCH (09:50)
[2021-08-01] MEDS: NYSTATIN 100000 UNIT/GM TOPICAL OINTMENT 15 GM TUBE TP SCH ×2 (09:51→21:23)
[2021-08-01] MEDS: FLUCONAZOLE 100 MG TABLET (UD) PO SCH (11:38)
[2021-08-01 11:50] LABS: ALBUMIN 1.6 g/dl (3.4-5.0); BILIRUBIN,TOTAL 0.2 mg/dL (0.2-1); BLOOD UREA NITROGEN 15.2 mg/dL (7-18); CALCIUM 8.1 mg/dL (8.5-10.1); CREATININE 0.4 mg/dL (0.55-1.3); MAGNESIUM 2.3 mg/dL (1.8-2.4); PHOSPHOROUS 3.6 mg/dL (2.5-4.9); TOT PROT 6.1 g/dl (6.4-8.2)
[2021-08-01] MEDS ORDERED: INSULIN (NOVOLOG) ASPART 100 UNITS/ML 10ML VIAL ONE (21:26)
[2021-08-02] MEDS: CEFTRIAXONE 2 GM in DEXTROSE 5%-WATER 100 ML IVPB SCH (06:00)
[2021-08-02] MEDS ORDERED: DEXTROSE 5%-WATER 100 ML IVPB ONE (06:05)
[2021-08-02] MEDS: DOCUSATE SODIUM 100 MG CAPSULE (FP) PO SCH ×3 (06:09→21:06)
[2021-08-02] MEDS: NYSTATIN 500,000 UNITS TABLET PO SCH ×3 (06:09→21:45)
[2021-08-02] MEDS: INSULIN SLIDING SCALE (NOVOLOG) 1 VIAL SQ SCH ×4 (06:10→21:06)
[2021-08-02] MEDS: INSULIN (LEVEMIR) 100 UNITS/ML UNITS SQ SCH ×2 (06:10→21:07)
[2021-08-02] MEDS ORDERED: INSULIN (LEVEMIR) 100 UNITS/ML UNITS SQ ONE (06:28)
[2021-08-02 08:53] LABS: BASO % 0.4 % (0-2.0); HEMATOCRIT 28.4 % (32.4-45.2); HEMOGLOBIN 9.5 GM/dL (10.7-15.3); LYMPH % 11.2 % (8-40); MCH 29.5 pg (25.7-33.7); MCHC 33.4 g/dl (32.0-36.0); MEAN CELL VOLUME 88.3 fl (80-96); MEAN PLT VOLUME 7.3 fl (7.5-11.1); MONO % 6.4 % (3.8-10.2); PLATELET COUNT 368 10^3/uL (134-434); RBC 3.22 M/mm3 (3.60-5.2); RDW 14.2 % (11.6-15.6); WHITE BLOOD COUNT 13.8 K/mm3 (4.0-10.0)
[2021-08-02 09:20] LABS: ALBUMIN 1.6 g/dl (3.4-5.0); BLOOD UREA NITROGEN 12.3 mg/dL (7-18)
[2021-08-02 09:23] LABS: CREATININE 0.4 mg/dL (0.55-1.3)
[2021-08-02 09:24] LABS: BILIRUBIN,TOTAL 0.4 mg/dL (0.2-1)
[2021-08-02] MEDS: ASCORBIC ACID 500 MG TABLET (FP) PO SCH ×2 (09:52→21:06)
[2021-08-02] MEDS: valACYclovir HCL 500 MG TABLET (FP) PO SCH ×2 (09:52→21:06)
[2021-08-02] MEDS: ZINC SULFATE 220 MG CAPSULE (FP) PO SCH (09:52)
[2021-08-02] MEDS: NIFEdipine E.R 60 MG TABLET PO SCH (09:52)
[2021-08-02] MEDS: AMINO ACIDS/PROTEIN HYDROLYS 30 ML LIQUID.PKT PO SCH ×2 (09:52→17:05)
[2021-08-02] MEDS: MULTIVITAMINS (DAILY MVI) TABLET (FP) PO SCH (09:52)
[2021-08-02] MEDS: LISINOPRIL 20 MG TABLET PO SCH (09:52)
[2021-08-02] MEDS: BACITRACIN 15 GM TUBE TOPICAL OINTMENT TP SCH ×2 (09:53→21:07)
[2021-08-02] MEDS: ENOXAPARIN NA (PORCINE) 40 MG/0.4 ML DISP.SYRIN SQ SCH (09:53)
[2021-08-02] MEDS: FLUCONAZOLE 100 MG TABLET (UD) PO SCH (09:53)
[2021-08-02] MEDS: HYDROCHLOROTHIAZIDE 12.5 MG CAPSULE (FP) PO SCH (09:53)
[2021-08-02] MEDS: NYSTATIN 100000 UNIT/GM TOPICAL OINTMENT 15 GM TUBE TP SCH ×2 (09:54→21:07)
[2021-08-02] MEDS ORDERED: HYDROmorphone HCL 2 MG TABLET PO PRN (10:34)
[2021-08-02] MEDS ORDERED: ACETAMINOPHEN 1000 MG/100 ML VIAL IVPB ONE (16:47)
[2021-08-02] MEDS ORDERED: PT OWN MED DRAWER 7, Y5N ONE (21:44)
[2021-08-03] MEDS ORDERED: DEXTROSE 5%-WATER 100 ML IVPB ONE (03:53)
[2021-08-03] MEDS: CEFTRIAXONE 2 GM in DEXTROSE 5%-WATER 100 ML IVPB SCH (04:12)
[2021-08-03] MEDS: DOCUSATE SODIUM 100 MG CAPSULE (FP) PO SCH ×3 (05:34→21:02)
[2021-08-03] MEDS: NYSTATIN 500,000 UNITS TABLET PO SCH ×3 (05:34→21:04)
[2021-08-03] MEDS: INSULIN SLIDING SCALE (NOVOLOG) 1 VIAL SQ SCH ×4 (06:02→21:03)
[2021-08-03] MEDS: INSULIN (LEVEMIR) 100 UNITS/ML UNITS SQ SCH ×2 (06:02→21:03)
[2021-08-03] MEDS ORDERED: INSULIN (NOVOLOG) ASPART 100 UNITS/ML 10ML VIAL ONE ×2 (06:40→10:17)
[2021-08-03 09:02] LABS: BASO % 0.5 % (0-2.0); EOS % 1.4 % (0-4.5); HEMATOCRIT 28.3 % (32.4-45.2); HEMOGLOBIN 9.5 GM/dL (10.7-15.3); LYMPH % 9.2 % (8-40); MCH 29.9 pg (25.7-33.7); MCHC 33.6 g/dl (32.0-36.0); MEAN CELL VOLUME 88.9 fl (80-96); MEAN PLT VOLUME 7.2 fl (7.5-11.1); MONO % 6.3 % (3.8-10.2); NEUT % 82.6 % (42.8-82.8); PLATELET COUNT 352 10^3/uL (134-434); RBC 3.18 M/mm3 (3.60-5.2); RDW 14.4 % (11.6-15.6); WHITE BLOOD COUNT 11.1 K/mm3 (4.0-10.0)
[2021-08-03 09:20] LABS: CALCIUM 8.2 mg/dL (8.5-10.1)
[2021-08-03 09:21] LABS: ALBUMIN 1.5 g/dl (3.4-5.0); BLOOD UREA NITROGEN 17.4 mg/dL (7-18)
[2021-08-03 09:24] LABS: CREATININE 0.6 mg/dL (0.55-1.3)
[2021-08-03 09:25] LABS: BILIRUBIN,TOTAL 0.3 mg/dL (0.2-1); TOT PROT 6.2 g/dl (6.4-8.2)
[2021-08-03 10:01] LABS: ERYTHROCYTE SEDIMENTATION RATE 106 mm/hr (0-30)
[2021-08-03] MEDS: ENOXAPARIN NA (PORCINE) 40 MG/0.4 ML DISP.SYRIN SQ SCH (10:38)
[2021-08-03] MEDS: BACITRACIN 15 GM TUBE TOPICAL OINTMENT TP SCH ×2 (10:39→21:04)
[2021-08-03] MEDS: AMINO ACIDS/PROTEIN HYDROLYS 30 ML LIQUID.PKT PO SCH ×2 (10:39→17:11)
[2021-08-03] MEDS: FLUCONAZOLE 100 MG TABLET (UD) PO SCH (10:39)
[2021-08-03] MEDS: MULTIVITAMINS (DAILY MVI) TABLET (FP) PO SCH (10:40)
[2021-08-03] MEDS: valACYclovir HCL 500 MG TABLET (FP) PO SCH ×2 (10:40→21:02)
[2021-08-03] MEDS: LISINOPRIL 20 MG TABLET PO SCH (10:40)
[2021-08-03] MEDS: ZINC SULFATE 220 MG CAPSULE (FP) PO SCH (10:41)
[2021-08-03] MEDS: ASCORBIC ACID 500 MG TABLET (FP) PO SCH ×2 (10:41→21:02)
[2021-08-03] MEDS: HYDROCHLOROTHIAZIDE 12.5 MG CAPSULE (FP) PO SCH (10:46)
[2021-08-03] MEDS: NIFEdipine E.R 60 MG TABLET PO SCH (10:46)
[2021-08-03] MEDS: NYSTATIN 100000 UNIT/GM TOPICAL OINTMENT 15 GM TUBE TP SCH ×2 (10:46→21:04)
[2021-08-03] MEDS ORDERED: SODIUM PHOSPHATE/NA BIPHOS 133 ML ENEMA PR ONE (13:21)
[2021-08-03] MEDS ORDERED: PT OWN MED DRAWER 7, Y5N ONE (20:25)
[2021-08-03] MEDS: POLYETHYLENE GLYCOL (HEALTHYLAX) 3350 17 GM PACKET PO SCH (21:03)
[2021-08-03 22:23] LABS: EPI CELLS >36 /uL (0-25.1); HYALINE CASTS 1 /uL (0-3.1); PH,URINE 7.5 (5.0-8.0); URINE APPEARANCE CLEAR; URINE BACTERIA 8 /uL (0-1359); URINE BILIRUBIN NEGATIVE (NEGATIVE); URINE COLOR YELLOW; URINE GLUCOSE (UA) NEGATIVE (NEGATIVE); URINE KETONE NEGATIVE (NEGATIVE); URINE LEUK ESTERASE TRACE (NEGATIVE); URINE NITRITE NEGATIVE (NEGATIVE); URINE PROTEIN NEGATIVE (NEGATIVE); URINE RBC 15 /uL (0-23.9); URINE WBC 64 /uL (0-25.8); YEAST NONE SEEN (NEGATIVE)
[2021-08-04] MEDS ORDERED: DEXTROSE 5%-WATER 100 ML IVPB ONE (03:19)
[2021-08-04] MEDS: CEFTRIAXONE 2 GM in DEXTROSE 5%-WATER 100 ML IVPB SCH (04:08)
[2021-08-04] MEDS ORDERED: PT OWN MED DRAWER 7, Y5N ONE ×3 (04:53→13:25)
[2021-08-04] MEDS: ACETAMINOPHEN 325 MG TABLET (FP) PO PRN (05:02)
[2021-08-04] MEDS: DOCUSATE SODIUM 100 MG CAPSULE (FP) PO SCH ×3 (05:03→22:42)
[2021-08-04] MEDS: NYSTATIN 500,000 UNITS TABLET PO SCH ×3 (05:03→22:42)
[2021-08-04] MEDS: INSULIN (LEVEMIR) 100 UNITS/ML UNITS SQ SCH ×2 (06:01→22:51)
[2021-08-04] MEDS: INSULIN SLIDING SCALE (NOVOLOG) 1 VIAL SQ SCH ×4 (06:01→22:51)
[2021-08-04 09:12] LABS: BASO % 0.6 % (0-2.0); EOS % 1.9 % (0-4.5); HEMATOCRIT 29.7 % (32.4-45.2); LYMPH % 9.3 % (8-40); MCH 29.8 pg (25.7-33.7); MCHC 33.8 g/dl (32.0-36.0); MEAN CELL VOLUME 88.3 fl (80-96); MEAN PLT VOLUME 7.1 fl (7.5-11.1); MONO % 5.9 % (3.8-10.2); NEUT % 82.3 % (42.8-82.8); PLATELET COUNT 351 10^3/uL (134-434); RBC 3.36 M/mm3 (3.60-5.2); RDW 14.7 % (11.6-15.6)
[2021-08-04] MEDS: HYDROCHLOROTHIAZIDE 12.5 MG CAPSULE (FP) PO SCH (09:20)
[2021-08-04] MEDS: NIFEdipine E.R 60 MG TABLET PO SCH (09:20)
[2021-08-04] MEDS: LISINOPRIL 20 MG TABLET PO SCH (09:20)
[2021-08-04] MEDS: AMINO ACIDS/PROTEIN HYDROLYS 30 ML LIQUID.PKT PO SCH ×2 (09:20→17:23)
[2021-08-04] MEDS: TAMSULOSIN HCL 0.4 MG CAP PO SCH (09:20)
[2021-08-04] MEDS: ZINC SULFATE 220 MG CAPSULE (FP) PO SCH (09:20)
[2021-08-04] MEDS: ENOXAPARIN NA (PORCINE) 40 MG/0.4 ML DISP.SYRIN SQ SCH (09:20)
[2021-08-04] MEDS: ASCORBIC ACID 500 MG TABLET (FP) PO SCH ×2 (09:20→22:42)
[2021-08-04] MEDS: valACYclovir HCL 500 MG TABLET (FP) PO SCH ×2 (09:20→22:42)
[2021-08-04] MEDS: POLYETHYLENE GLYCOL (HEALTHYLAX) 3350 17 GM PACKET PO SCH ×2 (09:20→22:43)
[2021-08-04] MEDS: FLUCONAZOLE 100 MG TABLET (UD) PO SCH (09:23)
[2021-08-04] MEDS: BACITRACIN 15 GM TUBE TOPICAL OINTMENT TP SCH ×2 (09:24→22:34)
[2021-08-04] MEDS: NYSTATIN 100000 UNIT/GM TOPICAL OINTMENT 15 GM TUBE TP SCH ×2 (09:24→22:52)
[2021-08-04] MEDS: MULTIVITAMINS (DAILY MVI) TABLET (FP) PO SCH (09:24)
[2021-08-04 10:00] LABS: CALCIUM 8.5 mg/dL (8.5-10.1)
[2021-08-04 10:01] LABS: ALBUMIN 1.6 g/dl (3.4-5.0); BLOOD UREA NITROGEN 16.8 mg/dL (7-18); ERYTHROCYTE SEDIMENTATION RATE 108 mm/hr (0-30)
[2021-08-04 10:04] LABS: CREATININE 0.6 mg/dL (0.55-1.3)
[2021-08-04 10:05] LABS: BILIRUBIN,TOTAL 0.3 mg/dL (0.2-1)
[2021-08-04 10:06] LABS: TOT PROT 6.4 g/dl (6.4-8.2)
[2021-08-04] MEDS ORDERED: INSULIN (NOVOLOG) ASPART 100 UNITS/ML 10ML VIAL ONE ×2 (16:53→22:16)
[2021-08-05] MEDS ORDERED: DEXTROSE 5%-WATER 100 ML IVPB ONE (05:28)
[2021-08-05] MEDS: NYSTATIN 500,000 UNITS TABLET PO SCH ×3 (06:05→22:03)
[2021-08-05] MEDS: DOCUSATE SODIUM 100 MG CAPSULE (FP) PO SCH ×3 (06:05→21:49)
[2021-08-05] MEDS: CEFTRIAXONE 2 GM in DEXTROSE 5%-WATER 100 ML IVPB SCH (06:05)
[2021-08-05] MEDS: INSULIN (LEVEMIR) 100 UNITS/ML UNITS SQ SCH ×2 (06:20→22:09)
[2021-08-05] MEDS: INSULIN SLIDING SCALE (NOVOLOG) 1 VIAL SQ SCH ×4 (06:27→22:08)
[2021-08-05 08:43] LABS: HEMATOCRIT 28.2 % (32.4-45.2); HEMOGLOBIN 9.8 GM/dL (10.7-15.3); MCH 30.8 pg (25.7-33.7); MCHC 34.6 g/dl (32.0-36.0); MEAN PLT VOLUME 7.6 fl (7.5-11.1); PLATELET COUNT 365 10^3/uL (134-434); RBC 3.17 M/mm3 (3.60-5.2); RDW 14.5 % (11.6-15.6); WHITE BLOOD COUNT 10.1 K/mm3 (4.0-10.0)
[2021-08-05] MEDS ORDERED: PT OWN MED DRAWER 7, Y5N ONE (08:54)
[2021-08-05] MEDS: AMINO ACIDS/PROTEIN HYDROLYS 30 ML LIQUID.PKT PO SCH ×2 (08:57→17:03)
[2021-08-05] MEDS: TAMSULOSIN HCL 0.4 MG CAP PO SCH (08:58)
[2021-08-05] MEDS: POLYETHYLENE GLYCOL (HEALTHYLAX) 3350 17 GM PACKET PO SCH ×3 (08:59→22:20)
[2021-08-05] MEDS: LISINOPRIL 20 MG TABLET PO SCH (09:00)
[2021-08-05] MEDS: MULTIVITAMINS (DAILY MVI) TABLET (FP) PO SCH (09:00)
[2021-08-05] MEDS: ZINC SULFATE 220 MG CAPSULE (FP) PO SCH (09:01)
[2021-08-05] MEDS: FLUCONAZOLE 100 MG TABLET (UD) PO SCH (09:01)
[2021-08-05] MEDS: NIFEdipine E.R 60 MG TABLET PO SCH (09:01)
[2021-08-05] MEDS: HYDROCHLOROTHIAZIDE 12.5 MG CAPSULE (FP) PO SCH (09:01)
[2021-08-05] MEDS: BACITRACIN 15 GM TUBE TOPICAL OINTMENT TP SCH ×2 (09:01→21:48)
[2021-08-05] MEDS: valACYclovir HCL 500 MG TABLET (FP) PO SCH ×2 (09:02→21:49)
[2021-08-05] MEDS: NYSTATIN 100000 UNIT/GM TOPICAL OINTMENT 15 GM TUBE TP SCH ×2 (09:02→21:51)
[2021-08-05] MEDS: ASCORBIC ACID 500 MG TABLET (FP) PO SCH ×2 (09:02→21:49)
[2021-08-05 10:42] LABS: ALBUMIN 1.6 g/dl (3.4-5.0); BILIRUBIN,TOTAL 0.5 mg/dL (0.2-1); BLOOD UREA NITROGEN 15.8 mg/dL (7-18); CREATININE 0.5 mg/dL (0.55-1.3); TOT PROT 6.3 g/dl (6.4-8.2)
[2021-08-05] MEDS ORDERED: INSULIN (NOVOLOG) ASPART 100 UNITS/ML 10ML VIAL ONE (11:29)
[2021-08-05] MEDS: ACETAMINOPHEN 325 MG TABLET (FP) PO PRN (13:22)
[2021-08-05] MEDS: COLLAGENASE CLOSTRIDIUM HIST. 30 GRAMS TUBE TP SCH (15:03)
[2021-08-06] MEDS ORDERED: DEXTROSE 5%-WATER 100 ML IVPB ONE (05:19)
[2021-08-06] MEDS: NYSTATIN 500,000 UNITS TABLET PO SCH ×3 (06:21→22:15)
[2021-08-06] MEDS: CEFTRIAXONE 2 GM in DEXTROSE 5%-WATER 100 ML IVPB SCH (06:21)
[2021-08-06] MEDS: DOCUSATE SODIUM 100 MG CAPSULE (FP) PO SCH ×3 (06:21→22:10)
[2021-08-06] MEDS: INSULIN SLIDING SCALE (NOVOLOG) 1 VIAL SQ SCH ×4 (06:48→22:14)
[2021-08-06] MEDS: INSULIN (LEVEMIR) 100 UNITS/ML UNITS SQ SCH (06:49)
[2021-08-06] MEDS ORDERED: ACETAMINOPHEN 325 MG TABLET (FP) PO PRN (07:57)
[2021-08-06] MEDS ORDERED: BISACODYL 10 MG SUPP.RECT RC PRN (07:57)
[2021-08-06] MEDS ORDERED: MINERAL OIL/PETROLAT/WATER TOPICAL CREAM 454 GM JAR TP PRN (07:57)
[2021-08-06] MEDS ORDERED: TAMSULOSIN HCL 0.4 MG CAP PO SCH (08:30)
[2021-08-06] MEDS ORDERED: PT OWN MED DRAWER 7, Y5N ONE (09:24)
[2021-08-06] MEDS: BACITRACIN 15 GM TUBE TOPICAL OINTMENT TP SCH ×2 (09:27→22:10)
[2021-08-06] MEDS: AMINO ACIDS/PROTEIN HYDROLYS 30 ML LIQUID.PKT PO SCH ×2 (09:27→17:54)
[2021-08-06] MEDS: COLLAGENASE CLOSTRIDIUM HIST. 30 GRAMS TUBE TP SCH (09:28)
[2021-08-06] MEDS: POLYETHYLENE GLYCOL (HEALTHYLAX) 3350 17 GM PACKET PO SCH ×2 (09:28→22:10)
[2021-08-06] MEDS: valACYclovir HCL 500 MG TABLET (FP) PO SCH ×2 (09:28→22:10)
[2021-08-06] MEDS: NYSTATIN 100000 UNIT/GM TOPICAL OINTMENT 15 GM TUBE TP SCH ×2 (09:29→22:10)
[2021-08-06] MEDS: ASCORBIC ACID 500 MG TABLET (FP) PO SCH ×2 (09:29→22:10)
[2021-08-06] MEDS ORDERED: LACTOBACILLUS ACIDOPHILUS 1 TABLET PO SCH (10:00)
[2021-08-06] MEDS ORDERED: ZINC SULFATE 220 MG CAPSULE (FP) PO SCH (10:00)
[2021-08-06] MEDS ORDERED: NIFEdipine E.R 60 MG TABLET PO SCH (10:00)
[2021-08-06] MEDS ORDERED: MULTIVITAMINS (DAILY MVI) TABLET (FP) PO SCH (10:00)
[2021-08-06] MEDS ORDERED: HYDROCHLOROTHIAZIDE 12.5 MG CAPSULE (FP) PO SCH (10:00)
[2021-08-06] MEDS ORDERED: LISINOPRIL 20 MG TABLET PO SCH (10:00)
[2021-08-06] MEDS ORDERED: FLUCONAZOLE 100 MG TABLET (UD) PO SCH (10:00)
[2021-08-06] MEDS ORDERED: ACETAMINOPHEN 500 MG TABLET (FP) PO ONE (14:45)
[2021-08-06 21:26] VITALS: BP 115/73; PULSE 94; TEMP 97.7
[2021-08-06] MEDS ORDERED: INSULIN (LEVEMIR) 100 UNITS/ML UNITS SQ SCH (22:00)
[2021-08-07] MEDS ORDERED: CEFTRIAXONE 2 GM in DEXTROSE 5%-WATER 100 ML IVPB SCH (05:00)
== END 2021-08-07 04:29 | DRG 710 ==
LOC: JER 06:31 → JERBED 14:16 → J7W 07-23 00:08 → J4W 07-23 12:08 → JICU 07-24 19:55 → J8W 07-28 18:48
PROVIDERS: ADMIT Internal Medicine
PROC: 00NY0ZZ Release Lumbar Spinal Cord, Open Approach (ICD-10-PCS; 2021-07-24)
PROC: 3E1R38Z Irrigation of Spinal Canal using Irrigating Substance, Percutaneous Approach (ICD-10-PCS; 2021-07-24)
PROC: 00NX0ZZ Release Thoracic Spinal Cord, Open Approach (ICD-10-PCS; 2021-07-24)
PROC: 0JD70ZZ Extraction of Back Subcutaneous Tissue and Fascia, Open Approach (ICD-10-PCS; 2021-07-24)
PROC: 009U0ZZ Drainage of Spinal Canal, Open Approach (ICD-10-PCS; principal; 2021-07-24 15:30)
PROC: 02HV33Z Insertion of Infusion Device into Superior Vena Cava, Percutaneous Approach (ICD-10-PCS; 2021-08-06)
PROC: B518ZZA Fluoroscopy of Superior Vena Cava, Guidance (ICD-10-PCS; 2021-08-06)
DX: A40.1 Sepsis due to streptococcus, group B (principal); G93.41 Metabolic encephalopathy; E78.5 Hyperlipidemia, unspecified; E66.9 Obesity, unspecified; Z68.30 Body mass index [BMI] 30.0-30.9, adult; B37.0 Candidal stomatitis; I16.9 Hypertensive crisis, unspecified; E87.1 Hypo-osmolality and hyponatremia; E11.10 Type 2 diabetes mellitus with ketoacidosis without coma; E46 Unspecified protein-calorie malnutrition; I10 Essential (primary) hypertension; G06.1 Intraspinal abscess and granuloma; J96.00 Acute respiratory failure, unspecified whether with hypoxia or hypercapnia; E88.09 Other disorders of plasma-protein metabolism, not elsewhere classified; G95.20 Unspecified cord compression; E87.6 Hypokalemia; K12.30 Oral mucositis (ulcerative), unspecified; E11.621 Type 2 diabetes mellitus with foot ulcer; L97.518 Non-pressure chronic ulcer of other part of right foot with other specified severity; N39.0 Urinary tract infection, site not specified; D64.9 Anemia, unspecified; B95.1 Streptococcus, group B, as the cause of diseases classified elsewhere; E11.65 Type 2 diabetes mellitus with hyperglycemia; R41.0 Disorientation, unspecified; M46.26 Osteomyelitis of vertebra, lumbar region; M51.26 Other intervertebral disc displacement, lumbar region; S80.212A Abrasion, left knee, initial encounter; S80.211A Abrasion, right knee, initial encounter; W18.39XA Other fall on same level, initial encounter; Y92.89 Other specified places as the place of occurrence of the external cause
CPT/HCPCS: 36415; 36569; 36600; 70450-TC; 71045-TC-FY; 72100-TC-FY; 72146-TC; 72147-TC; 72148-TC; 76000-TC-FY; 77001-TC-FY; 80048; 80053; 80061; 80170; 81003; 82010; 82550; 82553; 82728; 82803; 82962; 83036; 83735; 84100; 84484; 85025; 85027; 85610; 85651; 85730; 86140; 86850; 86900; 86901; 87040; 87070; 87077; 87086; 87186; 87205; 88304-TC; 88305-TC; 88311-TC; 90715; 93005; 93010; 93306-TC; 93970-TC; 94002; 94010; 97116-GP; 97162-GP; 99285-25; C1751; C9803; J0131; J3480; P9047; U0003; U0005